=== PATIENT | female | born 1990 | race Hispanic/Latino ===

== ENCOUNTER 2017-05-21 14:04 | Outpatient (CLI) | payer OTHER | END 2017-05-21 14:05 | disposition home or self-care (01) | LOC: BICULT 14:04 | PROVIDERS: ATTEND Family Medicine | DX: R22.1 Localized swelling, mass and lump, neck (principal) | CPT/HCPCS: 76536 ==

== ENCOUNTER 2017-07-26 23:09 | Emergency (ER) | payer OTHER ==
[2017-07-27 00:40] LABS: Pregnancy Test - Urine (BHCG) Negative (Negative); Pregu Control Background? CLEAR/WHITE (CLR/WHITE); Pregu Control Bar Appear? YES (CONTROL BAR); Specific Gravity 1.025 (1.002-1.036)
[2017-07-27] MEDS ORDERED: Ketorolac Tromethamine 30 MG/ML VIAL ONE ×3 (01:24→01:45)
[2017-07-27] MEDS ORDERED: Cyclobenzaprine 10 MG TAB ONE ×2 (01:24→01:43)
== END 2017-07-27 02:14 | disposition home or self-care (01) ==
LOC: ERS 23:09
DX: R25.2 Cramp and spasm (principal); G43.909 Migraine, unspecified, not intractable, without status migrainosus; I10 Essential (primary) hypertension
CPT/HCPCS: 81025; 96372; J1885

== ENCOUNTER 2018-01-04 19:02 | Emergency (ER) | payer OTHER ==
[2018-01-04] MEDS ORDERED: Cyclobenzaprine 10 MG TAB ONE (19:35)
[2018-01-04] MEDS ORDERED: Ketorolac Tromethamine 60 MG/2 ML VIAL ONE (19:35)
[2018-01-04] MEDS ORDERED: Diazepam 5 MG TAB ONE (20:55)
== END 2018-01-04 21:42 | disposition home or self-care (01) ==
LOC: ERS 19:02
DX: M62.838 Other muscle spasm (principal); I10 Essential (primary) hypertension; G43.909 Migraine, unspecified, not intractable, without status migrainosus; Z79.899 Other long term (current) drug therapy
CPT/HCPCS: 96372; J1885

== ENCOUNTER 2018-01-27 19:30 | Outpatient (CLI) | payer OTHER | END 2018-01-27 19:31 | disposition home or self-care (01) | LOC: SLEEPLAB 19:30 | PROVIDERS: ATTEND Family Medicine | DX: G47.33 Obstructive sleep apnea (adult) (pediatric) (principal); I10 Essential (primary) hypertension; R53.83 Other fatigue; R06.83 Snoring; G47.00 Insomnia, unspecified; G47.10 Hypersomnia, unspecified; G47.11 Idiopathic hypersomnia with long sleep time; Z68.37 Body mass index [BMI] 37.0-37.9, adult | CPT/HCPCS: 95810 ==

== ENCOUNTER 2018-07-23 14:04 | Day surgery (SDC) | payer OTHER ==
[2018-07-23 14:41] VITALS: BP 138/87; TEMP 98.8
[2018-07-23 14:42] VITALS: BMI 39.3
--- NOTE | 2018-07-23 15:15 | PDOC.FPROB ---
FMR OB H&P: HPI - History of Present Illness Chief Complaint: Elevated BP History of Present Illness: 28 yo @ 28.0 wks by 8.5 wk meka presents for mild dizziness and elevated BP readings at home. Notes when standing up out of bed this am, felt dizzy. Has had dizziness at times throughout day. Standing from sitting position exacerbated this. Her home BP readings max 150/105, otherwise 140s/ 90s. She notes it is typically 120s/80s. Has hx pre-E in first and cHTN, was on lisinopril but stopped taking when found out she was . Denies N/V, vision changes, swelling, SOB, CP, abdominal pain. Reports mild headache. Pt has hx migraines and she says this is very minimal. Primary Care Physician: Naren PELAEZ FMR OB H&P: Current - Care : 6 Para: 5005 Gestational age: 28.0 Due date: 10/15/2018 Dating Criteria: 8.5 wk US - OB Labs Blood type: O RH: negative Antibody Screen: positive HIV: negative RPR: negative HepBsAg: negative Rubella: immune Gonorrhea: negative Chlamydia: negative A1c: 5.7 H&H: 11.9/34.9 Platelets: 256 FMR OB H&P: History - Past Medical History PMH: chronic HTN, migraines - OB History OB History: 4 vaginal deliveries. Pre-eclampsia in 1st - Surgical History Sx History: None - Social History Social History: No tobacco, alcohol or drug use. - Family History Family History: HTN, DM, arthritis FMR OB H&P: Medications - Current Home Medications: Medication Instructions Recorded Confirmed Type Vit,Calc76/Iron/Folic 1 tablet PO DAILY 03/24/13 07/23/18 History [Prenatabs Rx Tablet] Aspirin Chewable 81 mg PO DAILY 07/23/18 07/23/18 History Allergies/Adverse Reactions: Allergies Allergy/AdvReac Type Severity Reaction Status Date / Time No Known Allergies Allergy Verified 01/27/16 21:42 FMR OB H&P: ROS - Review of Systems General: denies: fever/chills Eyes: denies: vision changes, scotomas ENT: reports: other (headache) Cardiovascular: denies: chest pain, edema Respiratory: denies: cough, shortness of breath Gastrointestinal: denies: abdominal pain, nausea, vomiting Genitourinary (Female): denies: dysuria, vaginal discharge, vaginal bleeding, contractions Musculoskeletal: denies: pain, swelling Neurologic: reports: headache FMR OB H&P: Vital Signs - Maternal Vital signs: Vital Signs - First Documented Temp Pulse Resp BP Pulse Ox 98.8 F 61 16 138/87 100 07/23/18 14:20 07/23/18 14:20 07/23/18 14:20 07/23/18 14:20 07/23/18 14:20 - Heart Tones Baseline: 145 Variability: moderate Acceleration: present Deceleration: absent [place] contractions every: none FMR OB H&P: Physical Exam - Physical Exam General: NAD, awake, alert and oriented HEENT: normocephalic and atraumatic, MMM, grossly normal vision, grossly normal hearing Heart: RRR, normal S1/S2, no murmurs/rubs/gallops, no edema General: CTAB, no respiratory distress, no wheezing Abdomen: soft, gravid, non-tender, bowel sound present Skin: good tugor, capillary refill <2 seconds Lymphatic: no unusual bruising or bleeding FMR OB H&P: A/P - Problem List (1) Chronic hypertension affecting Status: Acute Code(s): O10.919 - UNSP PRE-EXISTING HTN COMP , UNSP TRIMESTER (2) Rh negative status during Status: Acute Code(s): O09.899 - SUPERVISION OF OTHER HIGH RISK PREGNANCIES, UNSP TRIMESTER Comment: Delivered male with O negative blood type. No additional Rhogam required. Discussion: Date/Time: 07/23/18 1515 Elevated BP - BP max here 138/87, continue serial BPs - CBC, CMP, urine studies pending - PO hydration and tylenol ordered cHTN - takes ASA 81mg at home - seen by [facility] outpatient Rh negative - antibody positive 2/2 rhogam administration early in - last seen in clinic @ 25 weeks, had not received 28 week rhogam yet Labs resulted and wnl apart from moderate leuk esterase on UA. Patient asymptomatic and no abx given. Urine culture sent and will follow up on FOS list. Patient's mild headache and dizziness resolved with tylenol and PO hydration. Symptoms likely 2/2 dehydration. All BPs <140/90. Recommended follow up and return precautions given. This H&P was discussed with Dr. Nazario Salinas and Dr. Aguero who agree with the above documentation and plan. Addendum - Attending - Attending Attestation Date/Time: 07/24/18 0716 I personally evaluated the patient and discussed the management with Dr. [] I agree with the History, Examination, Assessment and Plan documented above with any addition or exceptions noted below. 28 yo @ 28.0 wks by 8.5 wk sono seen for BP evaluation. Pt with known h/ o chronic HTN. Pt reports dizziness with position changes that resolves quickly. BP and lab evaluation here do not support superimposed preeclampsia at this time. Stable for d/c to home. Preeclampsia precautions reviewed
[2018-07-23] MEDS ORDERED: Acetaminophen 500 MG TAB PO SCH (15:30)
[2018-07-23 15:31] LABS: Bilirubin Negative (Negative); Blood, Urine Negative (Negative); Clarity CLOUDY (Clear); Glucose, Urine (Dipstick) Negative (Negative); Leukocyte Moderate (Negative); Nitrite Negative (Negative); Protein, Urine (Dipstick) Negative (Neg-Trace); Specific Gravity, Urine 1.025 (1.002-1.036)
[2018-07-23 15:34] LABS: Urine Culture Reflex No No
[2018-07-23 15:51] LABS: #Eosinphils 0.1 thou/uL (0.0-0.7); #Lymphocytes 1.4 thou/uL (1.20-3.40); #Monocytes 0.5 thou/uL (0.11-0.59); #Neutrophils 5.9 thou/uL (1.40-6.50); %Basophils 0.4 % (0.0-1.0); %Eosinophils 1.2 % (0.0-10.0); %Lymphocytes 18.2 % (21.0-51.0); %Monocytes 5.8 % (0.0-10.0); %Neutrophils 74.4 % (42.0-75.0); Hemoglobin 12.4 g/dL (12.0-16.0); Mean Corpuscular HGB CONC 33.3 g/dL (32.0-36.0); Mean Corpuscular Hemoglobin 28.4 pg (27.0-31.0); Mean Corpuscular Volume 85.5 fL (78.0-98.0); Mean Platelet Volume 9.4 fL (7.4-10.4); Platelet Count 237 thou/uL (130-400); RBC Distribution Width 12.1 % (11.5-14.5); Red Blood Cell (RBC) Count 4.35 mill/uL (4.20-5.40); White Blood Cell (WBC) Count 7.9 thou/uL (4.8-10.8)
[2018-07-23 16:12] LABS: ALT (SGPT) 10 U/L (8-55); AST (SGOT) 11 U/L (5-34); Albumin 3.2 g/dL (3.5-5.0); Alkaline Phosphatase 106 U/L (40-150); Anion Gap 12 mmol/L (10-20); BUN (Urea Nitrogen) 8 mg/dL (7.0-18.7); Bilirubin, Total 0.3 mg/dL (0.2-1.2); Calc. Creatinine Clearance 209 mL/min (70-130); Calcium 9.2 mg/dL (7.8-10.44); Carbon Dioxide 19 mmol/L (22-29); Chloride 107 mmol/L (98-107); Estimated GFR-MDRD Greater than 90; Glucose 89 mg/dL (70-105); Potassium 4.1 mmol/L (3.5-5.1); Protein, Total 6.2 g/dL (6.0-8.3); Sodium 134 mmol/L (136-145)
== END 2018-07-23 16:58 | disposition home or self-care (01) ==
LOC: L&D/OP 14:04
PROVIDERS: ATTEND Family Medicine
DX: O10.913 Unspecified pre-existing hypertension complicating pregnancy, third trimester (principal); O99.89 Other specified diseases and conditions complicating pregnancy, childbirth and the puerperium; R42 Dizziness and giddiness; O99.353 Diseases of the nervous system complicating pregnancy, third trimester; G43.909 Migraine, unspecified, not intractable, without status migrainosus; Z79.82 Long term (current) use of aspirin; Z3A.28 28 weeks gestation of pregnancy
CPT/HCPCS: 36415; 80053; 81003; 82570; 84156; 84550; 85025; 87086; 99283

== ENCOUNTER 2018-09-19 17:13 | Day surgery (SDC) | payer OTHER ==
[2018-09-19] MEDS ORDERED: hydrALAZINE 20 MG/ML VIAL SLOW IVP PRN (17:17)
[2018-09-19 17:47] VITALS: BP 138/78; TEMP 98.6
[2018-09-19 17:48] VITALS: BMI 40.7
[2018-09-19 18:17] LABS: #Eosinphils 0.1 thou/uL (0.0-0.7); #Lymphocytes 1.5 thou/uL (1.20-3.40); #Monocytes 0.5 thou/uL (0.11-0.59); #Neutrophils 6.2 thou/uL (1.40-6.50); %Basophils 0.4 % (0.0-1.0); %Eosinophils 1.6 % (0.0-10.0); %Lymphocytes 17.5 % (21.0-51.0); %Monocytes 6.1 % (0.0-10.0); %Neutrophils 74.5 % (42.0-75.0); Hemoglobin 11.6 g/dL (12.0-16.0); Mean Corpuscular Hemoglobin 27.7 pg (27.0-31.0); Mean Platelet Volume 9.2 fL (7.4-10.4); Platelet Count 223 thou/uL (130-400); RBC Distribution Width 12.2 % (11.5-14.5); White Blood Cell (WBC) Count 8.4 thou/uL (4.8-10.8)
--- NOTE | 2018-09-19 18:32 | PDOC.LDHP ---
Labor and Delivery H&P Chief complaint: abdominal pain, other ("seeing spots" x1 time today) HPI: Ms. Jonathan Norwood is a 28 year old @ 36.2 weeks by 8.5 week sonogram who presents to L&D after being seen in clinic today. At her visit she reported RUQ pain x2 days and one episode of "seeing stars" today while walking. She has a history of preeclampsia with her first child. She denies painful contractions, loss of fluid or mucus, vaginal bleeding, and decreased movement. 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 She also has lower abdominal pain that has been present for the past several weeks and is mild and constant in nature. She has PMH of chronic HTN for which she took Lisinopril prior to . During this her medications include baby aspirin and vitamins. ROS: General: denies fever, chills Eyes: c/o photopsia, denies blurred vision, scotoma CV: denies chest pain Respiratory: denies shortness of breath, cough, congestion GI: c/o RUQ pain, lower abdominal pain. denies nausea, vomiting. : c/o regular vaginal discharge. denies loss of fluid, mucus plug, vaginal bleeding. MSK: denies pain Neuro: denies headache Current gestational age (weeks): 36 (36.2) Due date: 10/15/18 Dating criteria: first trimester ultrasound Grav: 6 Para: 5 Current complications: preeclampsia without severe features (first ) Past Medical History: Chronic HTN Current medications: pre- vitamins, other (aspirin 81mg) Previous surgical history: none Allergies/Adverse Reactions: Allergies Allergy/AdvReac Type Severity Reaction Status Date / Time No Known Allergies Allergy Verified 01/27/16 21:42 Social history: none - Physical Exam Vital signs reviewed and normal: yes Abnormal vital signs: BP 167/104 @1822. Recheck @ 1837 146/80. General: NAD, resting Heart: RRR Lungs: CTAB Abdomen: NTTP Extremeties: trace edema FHT: category 1 (FHR in the 130s, good variability, no contractions) - OB Labs Blood type: O RH: negative Antibody Screen: positive HIV: negative RPR: negative HEPSAg: negative GBS: negative Rubella: immune Additional Labs: Laboratory Tests 09/19/18 09/19/18 09/19/18 18:08 18:12 18:12 WBC 8.4 Hgb 11.6 L Plt Count 223 Creatinine 0.63 AST 13 ALT 13 U Random Total Protein Less than 10 Urine Creatinine 60.19 - Assessment 28 year old @ 36.2 weeks by 8.5 week sonogram who presents to L&D to be assessed for pre-ecclampsia workup. - Plan Plan: observation in L&D -: 1. Pre-e workup Patient on the monitor, Category 1 tracing. Monitored blood pressures for approximately 3 hours. One severe range BP at 1822 (167/104) followed by mildly elevated range at 1837 (148/80). Otherwise all pressures were in the 140s/80s. Lab results came back normal. RUQ US showed no abnormal findings. Plan is to discharge the patient and have her follow up with her BPP/NST appointment at the clinic tomorrow.
[2018-09-19 18:40] LABS: Creatinine, Urine 60.19 mg/dL (47-110); Protein, Urine Random Quant Less than 10 mg/dL (1-14)
[2018-09-19 18:46] LABS: ALT (SGPT) 13 U/L (8-55); AST (SGOT) 13 U/L (5-34); Albumin 3.1 g/dL (3.5-5.0); Alkaline Phosphatase 168 U/L (40-150); Anion Gap 12 mmol/L (10-20); BUN (Urea Nitrogen) 10 mg/dL (7.0-18.7); Bilirubin, Total 0.3 mg/dL (0.2-1.2); Calc. Creatinine Clearance 217 mL/min (70-130); Calcium 9.3 mg/dL (7.8-10.44); Carbon Dioxide 20 mmol/L (22-29); Chloride 107 mmol/L (98-107); Estimated GFR-MDRD Greater than 90; Globulin 2.6 g/dL (2.4-3.5); Glucose 83 mg/dL (70-105); Potassium 4.1 mmol/L (3.5-5.1); Protein, Total 5.7 g/dL (6.0-8.3); Sodium 135 mmol/L (136-145)
--- NOTE | 2018-09-19 20:16 | ULT ---
RIGHT UPPER QUADRANT ABDOMINAL ULTRASOUND: HISTORY: Right upper quadrant abdominal pain. TECHNIQUE: Multiplanar anne-scale and color Doppler images were obtained in a right upper quadrant abdominal ult rasound. FINDINGS: The liver is normal in echogenicity without focal lesions or intrahepatic ductal dilatation. The gal lbladder is not completely distended, as the patient recently ate. There are no shadowing stones or gallbladder wall thickening. The common bile duct is normal in caliber, measuring 3 mm. The visualized portions of the pancreas are unremarkable. The right kidney is normal in echogenicity without hydronephrosis or calculus and measures 10.6 cm in length. IMPRESSION: Unremarkable examination. POS: [facility]
== END 2018-09-19 21:25 | disposition home or self-care (01) ==
LOC: L&D/OP 17:13
PROVIDERS: ATTEND Family Medicine
DX: O99.89 Other specified diseases and conditions complicating pregnancy, childbirth and the puerperium (principal); R10.11 Right upper quadrant pain; R10.30 Lower abdominal pain, unspecified; O10.913 Unspecified pre-existing hypertension complicating pregnancy, third trimester; Z3A.36 36 weeks gestation of pregnancy; Z79.82 Long term (current) use of aspirin
CPT/HCPCS: 36415; 59025; 76705; 80053; 82570; 84156; 85025; 99285

== ENCOUNTER 2018-10-01 08:05 | Inpatient (IN) | payer OTHER ==
[2018-10-01 08:43] VITALS: BMI 40.5
[2018-10-01 08:54] LABS: Amnisure Test RUPTURE DETECTED (No Rupture)
[2018-10-01 08:55] LABS: Amnisure Internal Control QC ACCEPTABLE (ACCEPTABLE)
--- NOTE | 2018-10-01 09:17 | PDOC.FPROB ---
FMR OB H&P: HPI - History of Present Illness Chief Complaint: LOF History of Present Illness: 28 yo @ 38.0 wks dated by 8.5 wk sono comes in with concern for excessive discharge. Denies any ctx. Woke up at 7:30 this morning with lots of discharge and fluid in bed. Denies any vaginal bleeding. denies any urinary sx' s. Denies any vaginal itching or irritation. Denies any headaches or vision changes. Denies any RUQ pain. Denies any n/v. Denies any leg swelling. Reports FM. Primary Care Physician: TERRA Sneed FMR OB H&P: Current - Care : 6 Para: 5 Gestational age: 38 Due date: 10/15 - OB Labs Blood type: O RH: negative Antibody Screen: positive HIV: negative RPR: negative HepBsAg: negative Rubella: immune (Anti D antibody positive) Gonorrhea: negative Chlamydia: negative 1 hour gtt: 2 hr GTt negative GBS: negative - Anatomy Survey Anatomy survey: No abnormalities noted FMR OB H&P: History - Past Medical History PMH: HTN - OB History OB History: 5 previous Vaginal Deliveries Hx of gestational diabetes - [employer] History [employer] History: 04/12/18 pap smear normal - Surgical History Sx History: None - Social History Social History: Denies any smoking, alcohol or illicit drug use - Family History Family History: Diabetes, HTN FMR OB H&P: Medications - Current Home Medications: Medication Instructions Recorded Confirmed Type Vit,Calc76/Iron/Folic 1 tablet PO DAILY 03/24/13 10/01/18 History [Prenatabs Rx Tablet] Ibuprofen [Motrin] 800 mg PO Q8HR #30 tab 10/03/18 Rx Allergies/Adverse Reactions: Allergies Allergy/AdvReac Type Severity Reaction Status Date / Time No Known Allergies Allergy Verified 01/27/16 21:42 FMR OB H&P: ROS - Review of Systems General: denies: fever/chills, weight/appetite/sleep changes ENT: denies: nasal congestion, rhinorrhea Cardiovascular: denies: chest pain, edema Respiratory: denies: cough, congestion, shortness of breath Gastrointestinal: denies: abdominal pain, cramping, nausea, vomiting, diarrhea Genitourinary (Female): denies: incontinence, dysuria, hematuria, vaginal discharge, vaginal pain, vaginal bleeding, contractions, vaginal pressure Musculoskeletal: denies: pain Neurologic: denies: numbness, headache Integumentary: denies: itching, rash Psychological: denies: depression, anxiety FMR OB H&P: Vital Signs - Maternal Vital signs: Vital Signs - First Documented Temp Pulse Resp BP 98.7 F 63 16 138/78 10/01/18 08:38 10/01/18 08:38 10/01/18 08:38 10/01/18 08:38 - Heart Tones Baseline: 140 Variability: moderate Acceleration: present Deceleration: absent Category: category 1 [place] contractions every: only one seen. Occasional FMR OB H&P: Physical Exam - Physical Exam General: NAD, awake, alert and oriented HEENT: grossly normal vision, grossly normal hearing, good dention Neck: supple, trachea midline, no LAD Heart: RRR, normal S1/S2, no murmurs/rubs/gallops, pulses present, no edema General: CTAB, no respiratory distress, good air movement, no rales/rhonchi, no wheezing Abdomen: soft, gravid, non-tender, bowel sound present, no masses Musculoskeletal: normal gait and station, FROM in all four extremities Neurological: sensation to pain,touch and proprioception grossly normal Skin: no rash, good tugor, capillary refill <2 seconds Lymphatic: no unusual bruising or bleeding Psychiatric: intact recent and remote memory, good judgement and insight, normal mood and affect - Pelvic Exam SVE: 9:15 3/25/-2 Davis score: 6 Membranes: SROM, Amnisure + Presentation: Vertex FMR OB H&P: Results - Labs Lab results: Laboratory Results - last 24 hr 10/01/18 08:30 Amnio Swab Test RUPTURE DETECTED H FMR OB H&P: A/P - Problem List (1) Term Current Visit: Yes Status: Acute Code(s): Z34.90 - ENCNTR FOR SUPRVSN OF NORMAL , UNSP, UNSP TRIMESTER (2) Premature rupture of membranes Current Visit: Yes Status: Acute Code(s): O42.90 - ABILIO ROM, 7TH0 BETW RUPT & ONST LABR, UNSP WEEKS OF GEST (3) Chronic hypertension affecting Current Visit: No Status: Acute Code(s): O10.919 - UNSP PRE-EXISTING HTN COMP , UNSP TRIMESTER (4) Rh negative status during Current Visit: No Status: Acute Code(s): O09.899 - SUPERVISION OF OTHER HIGH RISK PREGNANCIES, UNSP TRIMESTER Disposition: 27 year old at 38.0wks by 8.5 wk sono with NISHA 10/15/2018 here with possible SROM. #PROM- Amnisure +, will admit for labor at this time. Will start Pitocin for augmentation when pt ready. She has denied at this time. GBS negative. No need for abx ppx at this time #sIUP: IOB labs WNL. Pap smear NILM. GC/CT negative. Q4wk growth scans at our clinic, along with weekly mBPP/NST. 2h GTT WNL. s/p Tdap. 3T labs WNL. #History of Pre-E: Patient encouraged to take daily ASA. Baseline 24h urine protien 60. CMP WNL. Patient with recent pre-E workup that was negative. # cHTN: Patient has had several BP's >140/90 in early . Encouraged daily ASA. Continue weekly mBPP/NST and q4w growth scans. Patient followed with HROB and MFM. TSH wnl. Baseline labs drawn at previous visit and noted to be wnl. 24 hour urine protein 60 mg. Renal ultrasound ordered previously, but patient has yet to have this done due to financial limitations. #Rh negative: Patient received rhogam in early . Rhogam given 08/03. #Grandmultip: Patient is high risk for PPH. # Antibody positive: 2/2 rhogam administration in early . #Hx of GDM: HgA1c 5.7%. 2h GTT WNL #Bacterial vaginosis s/p treatment # Contraception: IUD vs. Depo Provera. Patient not ready for permanent sterilization. Addendum - Attending - Attending Attestation Date/Time: 10/03/18 6801 I personally discussed the management with Dr. Deluna at the time of admission. I agree with the History, Examination, Assessment and Plan documented above with any addition or exceptions noted below.
[2018-10-01] MEDS ORDERED: NS / Oxytocin 40 units/1000ml 1,000 ML IV PRN (09:21)
[2018-10-01] MEDS ORDERED: Ondansetron PF 4 MG/2 ML Vial IVP PRN ×2 (09:21→18:04)
[2018-10-01] MEDS ORDERED: hydrALAZINE 20 MG/ML VIAL SLOW IVP PRN ×2 (09:21→18:04)
[2018-10-01] MEDS ORDERED: Misoprostol 200 MCG TAB PR PRN (09:21)
[2018-10-01] MEDS ORDERED: Promethazine HCl 25 MG/ML VIAL IM PRN (09:21)
[2018-10-01] MEDS ORDERED: Acetaminophen 500 MG TAB PO PRN (09:21)
[2018-10-01] MEDS ORDERED: Lidocaine 1% (PF) 30 ML VIAL SC PRN (09:21)
[2018-10-01] MEDS ORDERED: Methylergonovine 0.2 MG/ML VIAL IM PRN (09:21)
[2018-10-01] MEDS ORDERED: Carboprost 250 MCG/ML AMP IM PRN (09:21)
[2018-10-01] MEDS ORDERED: NS w/ Oxytocin 10 units 500 ML IV SCH ×2 (09:30)
[2018-10-01 13:11] LABS: Hemoglobin 11.8 g/dL (12.0-16.0); Mean Corpuscular HGB CONC 32.9 g/dL (32.0-36.0); Mean Corpuscular Hemoglobin 27.7 pg (27.0-31.0); Mean Corpuscular Volume 84.3 fL (78.0-98.0); Mean Platelet Volume 9.4 fL (7.4-10.4); Platelet Count 207 thou/uL (130-400); RBC Distribution Width 12.2 % (11.5-14.5); Red Blood Cell (RBC) Count 4.25 mill/uL (4.20-5.40); White Blood Cell (WBC) Count 7.9 thou/uL (4.8-10.8)
[2018-10-01] MEDS: Lactated Ringer's 1,000 ML IV SCH (13:11)
[2018-10-01 13:58] LABS: Syphilis Antibody Nonreactive (Nonreactive); Syphilis Antibody Index 0.04 S/CO (<1.00 Non-Reactive)
[2018-10-01 13:58] LABS: HBSAg Index 0.31 S/CO (0-0.99); Hep B Surf Ag Non-Reactive S/CO (NonReactive)
[2018-10-01] MEDS ORDERED: Fentanyl 4 mcg/Bup 0.1% Cadd 100 ML ONE (15:15)
--- NOTE | 2018-10-01 16:34 | PDOC.OBLPN ---
FMR OB Labor PN: Subj - Interval History Chief Complaint: 27 year old at 38.0wks by 8.5 wk sono with NISHA 2018 Indentification: admitted for term PROM FMR OB Labor PN: Obj - Maternal Vital signs: Selected Entries 10/01/18 08:38 Temperature 98.7 F Pulse Rate 63 Blood Pressure 138/78 [Semi-Fowlers] Respiratory 16 Rate FMR OB Labor PN: Exam - Physical Exam General: NAD, awake, alert and oriented HEENT: normocephalic and atraumatic, PERRLA Heart: no edema General: no respiratory distress Deviation from normal: alaina, resting comfortably with epidural. FMR OB Labor PN: Data - Labs Lab results: Laboratory Results - last 24 hr 10/01/18 10/01/18 10/01/18 08:30 12:53 12:54 WBC 7.9 RBC 4.25 Hgb 11.8 L Hct 35.8 L MCV 84.3 MCH 27.7 MCHC 32.9 RDW 12.2 Plt Count 207 MPV 9.4 Amnio Swab Test RUPTURE DETECTED H Syphilis IgG/IgM Ab Nonreactive Hep Bs Antigen Blood Type Antibody Screen Antibody Identification 10/01/18 10/01/18 12:54 12:55 WBC RBC Hgb Hct MCV MCH MCHC RDW Plt Count MPV Amnio Swab Test Syphilis IgG/IgM Ab Hep Bs Antigen Non-Reactive Blood Type O NEGATIVE Antibody Screen POSITIVE H Antibody Identification ANTI-D DUE TO RHOGAM INJECTION FMR OB Labor PN: A/P - Problem List (1) Premature rupture of membranes Current Visit: Yes Status: Acute Code(s): O42.90 - ABILIO ROM, 7TH0 BETW RUPT & ONST LABR, UNSP WEEKS OF GEST (2) Term Current Visit: Yes Status: Acute Code(s): Z34.90 - ENCNTR FOR SUPRVSN OF NORMAL , UNSP, UNSP TRIMESTER (3) Chronic hypertension affecting Current Visit: No Status: Acute Code(s): O10.919 - UNSP PRE-EXISTING HTN COMP , UNSP TRIMESTER (4) Rh negative status during Current Visit: No Status: Acute Code(s): O09.899 - SUPERVISION OF OTHER HIGH RISK PREGNANCIES, UNSP TRIMESTER Comment: Delivered male infant with O negative blood type. No additional Rhogam required. Discussion: Date/Time: 10/01/18 6673 27 year old at 38.0wks by 8.5 wk sono with NISHA 10/15/2018 here admitted for term prelabor rupture of membranes. #Term PROM- Amnisure +,admitted. Started pitocin at 1200. Recheck at 1400 was 5/ 50/-2. Pt just receieved epdural at 1600. Planning to recheck now. GBS negative. No need for abx ppx at this time. Will continue augmentation with pitocin. #sIUP: IOB labs WNL. Pap smear NILM. GC/CT negative. Q4wk growth scans at our clinic, along with weekly mBPP/NST. 2h GTT WNL. s/p Tdap. 3T labs WNL. #History of Pre-E: Patient encouraged to take daily ASA. Baseline 24h urine protien 60. CMP WNL. Patient with recent pre-E workup that was negative. # cHTN: Pt here has had two severe range pressures while sitting up getting epidural, that resolved after placing epidural. Will monitor closely. Baseline labs drawn at previous visit and noted to be wnl. 24 hour urine protein 60 mg. Renal ultrasound ordered previously, but patient has yet to have this done due to financial limitations. #Rh negative: Rhogam given 08/03. #Grandmultip: Patient is high risk for PPH. #Antibody positive: 2/2 rhogam administration in early . #Hx of GDM: HgA1c 5.7%. 2h GTT WNL #Bacterial vaginosis s/p treatment #Contraception: IUD vs. Depo Provera. Patient not ready for permanent sterilization. Dispo: continue augmentation with pitocin. Addendum - Attending - Attending Attestation Date/Time: 10/01/18 3277 I personally evaluated the patient and discussed the management with Dr. Weston. I agree with the Assessment and Plan documented above.
[2018-10-01] MEDS ORDERED: Carboprost 250 MCG/ML AMP ONE (17:07)
[2018-10-01] MEDS ORDERED: Methylergonovine 0.2 MG/ML VIAL ONE (17:07)
[2018-10-01] MEDS ORDERED: NS / Oxytocin 40 units/1000ml 0 ML ONE (17:07)
[2018-10-01] MEDS ORDERED: Misoprostol 200 MCG TAB ONE (17:07)
[2018-10-01] MEDS ORDERED: Loperamide HCl 2 MG CAP PO PRN (17:20)
[2018-10-01] MEDS ORDERED: Diphenoxylate HCl/Atropine Tablet PO SCH (17:30)
[2018-10-01] MEDS ORDERED: Milk Of Magnesia 30 ML UDCUP PO PRN (18:04)
[2018-10-01] MEDS ORDERED: Bisacodyl 10 MG SUPP PR PRN (18:04)
[2018-10-01] MEDS ORDERED: Lanolin Ointment 7 GM TUBE TOP PRN (18:04)
[2018-10-01] MEDS ORDERED: Adacel (T-DAP) 0.5 ML SYRINGE IM ONE (18:04)
[2018-10-01] MEDS ORDERED: NS / Oxytocin 40 units/1000ml 1,000 ML IV SCH (18:04)
[2018-10-01] MEDS ORDERED: diphenhydrAMINE 25 MG CAP PO PRN (18:04)
[2018-10-01] MEDS ORDERED: Diphenoxylate HCl/Atropine Tablet PO PRN (19:37)
[2018-10-01] MEDS: Ibuprofen 800 MG TAB PO SCH (21:01)
[2018-10-01] MEDS: Docusate Calcium (SURFAK) 240 MG CAP PO SCH (21:19)
[2018-10-01] MEDS ORDERED: Acetaminophen 325 MG TAB PO PRN (21:44)
[2018-10-01] MEDS ORDERED: HYDROcodone/Acetaminophen 5/325 mg Tablet PO SCH (21:45)
--- NOTE | 2018-10-01 22:50 | PDOC.EVN ---
Event Note - Event Note Event Note: Note dictated at 17:30, but not yet available for review. Please see below for brief op note. 28 year old G6 now [id number] at 38.0 wks by 8.5 wk meka delivered [place] infant at 16:59 on 10/01 via . Patient presented with PROM and had uneventful intrapartum course. Delivered infant over intact perineum in OA position. Placenta delivered spontaneously and was noted to be intact with 3V cord noted and discarded. No lacerations noted. Uterus mildly boggy with moderate amount of bleeding noted after delivery. 800 mg of cytotec and .25 mg of hemabate given. No additional bleeding after medications. QBL 325 mL. Patient to go to for routine recovery/care. Infant went to nursery for routine recovery/care. Apgars 9/9 at 1 and 5 minutes respectively. Lisa Sneed, DO PGY-3 Addendum - Attending - Attending Attestation Date/Time: 10/02/18 0118 I was present to attend this uncomplicated with Dr. Velasquez. I agree with the History, Examination, Assessment and Plan documented above.
[2018-10-02] MEDS: Ibuprofen 800 MG TAB PO SCH ×3 (05:45→21:56)
[2018-10-02] MEDS: Lactated Ringer's 1,000 ML IV SCH (07:06)
--- NOTE | 2018-10-02 07:46 | PDOC.PP ---
Post Progress Note Post Day #: 1 Subjective: Patient PP day #1. Doing well. Endorses some nausea overnight. She has not had a meal yet due to nausea. She states she received medicine and is doing better. She had some liquids yesterday. She is going to try to eat today. Patient has ambulated only minimally. She is passing flatus. Patient had some diarrhea 2/2 hemabate. PO intake tolerated: yes Flatus: yes Ambulation: yes Vital Signs (12 hours) Temp Pulse Resp BP 10/02/18 06:20 98.4 F 62 18 139/68 10/02/18 02:40 98.1 F 63 18 115/60 10/01/18 22:34 98.0 F 62 18 131/70 10/01/18 21:41 57 L 20 145/80 H 10/01/18 20:35 97.6 F 60 18 139/75 Weight Weight 103.873 kg - Physical Examination General: NAD Cardiovascular: RRR Respiratory: non-labored breathing Abdominal: + bowel sounds, lochia (minimal), no distention Fundus firm & at: below umbilicus Neurological: no gross focal deficits Psychiatric: A&Ox3, normal affect Result Diagrams: 10/01/18 12:53 Additional Labs: Post Labs Blood Type O NEGATIVE 10/01/18 12:54 Hep Bs Antigen Non-Reactive S/CO (NonReactive) 10/01/18 12:55 (1) Term delivered Code(s): O80 - ENCOUNTER FOR FULL-TERM UNCOMPLICATED DELIVERY Status: Acute (2) Chronic hypertension affecting Code(s): O10.919 - UNSP PRE-EXISTING HTN COMP , UNSP TRIMESTER Status : Acute (3) Rh negative status during Code(s): O09.899 - SUPERVISION OF OTHER HIGH RISK PREGNANCIES, UNSP TRIMESTER Status: Acute Comment: Delivered male infant with O negative blood type. No additional Rhogam required. (4) Vaginal delivery Code(s): O80 - ENCOUNTER FOR FULL-TERM UNCOMPLICATED DELIVERY Status: Acute Comment: Mother is doing well. Will be d/c today with 2 and 6 week post follow up. Benzocaine spray prn. - Assessment/Plan 28 year old G6 now P6 at 38.0 wks by 8.5 wk sono delivered [facility] at 16: 59 on 10/01 via . Apgars 9/9. 1. Routine PP care - PP day #1 - Lochia minimal - Passing flatus - Encourage PO intake today - Breast/bottle feeding - VSS; BP high to 145/80 - Contraception: IUD vs. Depo Provera 2. Chronic HTN - BP high to 145/80 - No signs/symptoms of Pre-E - Continue to monitor, no severe range pressures 3. Rh negative - O+, patient received rhogam PP 4. Grandmultip - Given cytotec and hemabate PP - Lochia minimal overnight 5. Hx pre-E in prior - BP high to 145/80 - No signs/symptoms of PP pre-E 6. Hx of GDM in prior - Patient passed 2h GTT Dispo: Plan for d/c home tomorrow.
[2018-10-02] MEDS: Docusate Calcium (SURFAK) 240 MG CAP PO SCH ×2 (08:58→21:56)
[2018-10-02] MEDS: Prenatal Vitamin 1 TAB PO SCH (08:58)
[2018-10-02] MEDS: Ferrous Sulfate 325 MG TAB PO SCH ×2 (08:59→21:36)
[2018-10-02] MEDS ORDERED: Bupivacaine/Epinephrine 0.25% 30 ML VIAL ONE (11:11)
[2018-10-03] MEDS: Ibuprofen 800 MG TAB PO SCH (05:26)
--- NOTE | 2018-10-03 07:27 | PDOC.PP ---
Post Progress Note Post Day #: 2 Subjective: Patient doing well this AM. No significant overnight events. Tolerating PO, ambulating, passing flatus. PO intake tolerated: yes Flatus: yes Ambulation: yes Vital Signs (12 hours) Temp Pulse Resp BP 10/02/18 19:35 98.6 F 56 L 20 134/84 Weight Weight 103.873 kg - Physical Examination General: NAD Cardiovascular: RRR Respiratory: non-labored breathing Abdominal: + bowel sounds, lochia (minimal), no distention, appropriately TTP Fundus firm & at: below umbilicus Neurological: no gross focal deficits Psychiatric: A&Ox3, normal affect Result Diagrams: 10/01/18 12:53 Additional Labs: Post Labs Blood Type O NEGATIVE 10/01/18 12:54 Hep Bs Antigen Non-Reactive S/CO (NonReactive) 10/01/18 12:55 (1) Term delivered Code(s): O80 - ENCOUNTER FOR FULL-TERM UNCOMPLICATED DELIVERY Status: Acute (2) Chronic hypertension affecting Code(s): O10.919 - UNSP PRE-EXISTING HTN COMP , UNSP TRIMESTER Status : Acute (3) Rh negative status during Code(s): O09.899 - SUPERVISION OF OTHER HIGH RISK PREGNANCIES, UNSP TRIMESTER Status: Acute (4) Vaginal delivery Code(s): O80 - ENCOUNTER FOR FULL-TERM UNCOMPLICATED DELIVERY Status: Acute - Assessment/Plan 28 year old G6 now P6 at 38.0 wks by 8.5 wk sono delivered [place] M infant at 16: 59 on 10/01 via . Apgars 9/9. 1. Routine PP care - PP day #2 - Lochia minimal - Passing flatus - Encourage PO intake today - Breast/bottle feeding - VSS; BP high to 145/80 yesterday - Contraception: IUD vs. Depo Provera 2. Chronic HTN - BP high to 145/80 yesterday - No signs/symptoms of Pre-E 3. Rh negative - Infant O+, patient received rhogam PP 4. Grandmultip - Given cytotec and hemabate PP - Lochia minimal overnight 5. Hx pre-E in prior - BP high to 145/80 yesterday - No signs/symptoms of PP pre-E 6. Hx of GDM in prior - Patient passed 2h GTT Dispo: Plan for d/c home today
[2018-10-03 07:48] VITALS: BP 133/65; TEMP 98.3
[2018-10-03] MEDS: Ferrous Sulfate 325 MG TAB PO SCH (08:58)
--- NOTE | 2018-10-03 09:02 | DN ---
DATE OF PROCEDURE: 10/01/2018 RESIDENT PHYSICIAN: Lisa Sneed DO. PREOPERATIVE DIAGNOSES: 1. Prelabor rupture of membranes. 2. Term intrauterine . 3. Chronic hypertension. 4. Rh negative. 5. Grand multiparity. 6. Bacterial vaginosis, status post treatment. POSTOPERATIVE DIAGNOSES: 1. Term intrauterine , delivered. 2. Prelabor rupture of membranes. 3. Chronic hypertension. 4. Rh negative. 5. Grand multiparity. 6. Bacterial vaginosis, status post treatment. DESCRIPTION OF PROCEDURE: This is a 28-year-old, G6, now P6-0-0-6 at 38 weeks via 8-week and 5-week sonograms, who presented to Labor and Delivery with prelabor rupture of membranes. The patient was started on Pitocin for augmentation. She had an uneventful antepartum course. The patient delivered a TAGA male at 1659 hours on 10/01 via spontaneous vaginal delivery, over an intact perineum in the occipitoanterior position. No complications or lacerations. The patient did have some mild atony, which required 800 of Cytotec and 0.2 of Hemabate. After initiation of these agents, the patient's bleeding did resolve. The patient is to go to for routine recovery/care. will go to nursery for routine recovery/care. Apgars were 9 and 9 at one and five minutes respectively. The placenta was delivered spontaneously and was noted to be intact with three-vessel cord and discarded. Job ID: [id number]
[2018-10-03] MEDS: Docusate Calcium (SURFAK) 240 MG CAP PO SCH (09:06)
[2018-10-03] MEDS: Prenatal Vitamin 1 TAB PO SCH (09:06)
== END 2018-10-03 10:29 | disposition home or self-care (01) | DRG 806 ==
LOC: L&D/OP 08:05 → L&D 09:40 → 3SW 20:46
PROVIDERS: ADMIT Family Medicine; ATTEND Family Medicine
PROC: 10E0XZZ Delivery of Products of Conception, External Approach (ICD-10-PCS; principal; 2018-10-01)
DX: O10.92 Unspecified pre-existing hypertension complicating childbirth (principal); O72.1 Other immediate postpartum hemorrhage; Z37.0 Single live birth; O42.92 Full-term premature rupture of membranes, unspecified as to length of time between rupture and onset of labor; O24.429 Gestational diabetes mellitus in childbirth, unspecified control; Z3A.38 38 weeks gestation of pregnancy
CPT/HCPCS: 36415; 84112; 85027; 85461; 86780; 86850; 86870; 86900; 86901; 87340; 90384; 96372; 99285; J2210; J2405; J2590; J3490

== ENCOUNTER 2019-05-04 22:32 | Emergency (ER) | payer OTHER ==
[2019-05-04] MEDS ORDERED: diphenhydrAMINE 50 MG/ML VIAL ONE (23:46)
[2019-05-04] MEDS ORDERED: Acetaminophen 500 MG TAB ONE (23:46)
[2019-05-04] MEDS ORDERED: Metoclopramide HCl 10 MG/2 ML VIAL ONE (23:46)
[2019-05-04] MEDS ORDERED: Ketorolac Tromethamine 30 MG/ML VIAL ONE (23:46)
[2019-05-04 23:50] LABS: #Basophils 0.1 thou/uL (0.0-0.2); #Eosinphils 0.2 thou/uL (0.0-0.7); #Lymphocytes 2.9 thou/uL (1.20-3.40); #Monocytes 0.5 thou/uL (0.11-0.59); %Basophils 0.9 % (0.0-1.0); %Eosinophils 2.3 % (0.0-10.0); %Lymphocytes 38.4 % (21.0-51.0); %Monocytes 6.7 % (0.0-10.0); %Neutrophils 51.7 % (42.0-75.0); Hemoglobin 13.9 g/dL (12.0-16.0); Mean Corpuscular HGB CONC 34.1 g/dL (32.0-36.0); Mean Corpuscular Hemoglobin 28.4 pg (27.0-31.0); Mean Corpuscular Volume 83.4 fL (78.0-98.0); Mean Platelet Volume 9.5 fL (7.4-10.4); Platelet Count 254 thou/uL (130-400); RBC Distribution Width 11.7 % (11.5-14.5); Red Blood Cell (RBC) Count 4.88 mill/uL (4.20-5.40); White Blood Cell (WBC) Count 7.7 thou/uL (4.8-10.8)
[2019-05-05 00:09] LABS: ALT (SGPT) 20 U/L (8-55); AST (SGOT) 12 U/L (5-34); Albumin 3.9 g/dL (3.5-5.0); Alkaline Phosphatase 87 U/L (40-110); Anion Gap 10 mmol/L (10-20); BUN (Urea Nitrogen) 10 mg/dL (7.0-18.7); Bilirubin, Total 0.2 mg/dL (0.2-1.2); Calc. Creatinine Clearance 0 mL/min (70-130); Calcium 8.9 mg/dL (7.8-10.44); Carbon Dioxide 27 mmol/L (22-29); Chloride 105 mmol/L (98-107); Estimated GFR-MDRD 90; Globulin 3.1 g/dL (2.4-3.5); Glucose 92 mg/dL (70-105); Potassium 3.4 mmol/L (3.5-5.1); Sodium 139 mmol/L (136-145)
[2019-05-05] MEDS ORDERED: methylPREDNISolone Sod Succ/PF 125 MG/2 ML VIAL ONE (00:58)
== END 2019-05-05 01:13 | disposition home or self-care (01) ==
LOC: ERS 22:32
DX: R51 Headache (principal); I10 Essential (primary) hypertension; R11.0 Nausea; Z79.899 Other long term (current) drug therapy
CPT/HCPCS: 80053; 84484; 85025; 93005; 96365; 96375; J1200; J1885; J2765; J2930

== ENCOUNTER 2019-05-10 10:07 | Outpatient (CLI) | payer OTHER ==
--- NOTE | 2019-05-10 10:57 | MMO ---
Bilateral MAMMO Bilat Diag [facility]. CLINICAL HISTORY: Patient is 29 years old and is seen for diagnostic exam. VIEWS: The views performed were: . FILMS COMPARED: The present examination has been compared to a prior imaging study performed at [facility] on 05/10/2019. This study has been interpreted with the assistance of computer-aided detection. MAMMOGRAM FINDINGS: The breasts are heterogeneously dense, which could obscure a lesion on mammography. There are no suspicious masses, suspicious calcifications, or areas of architectural distortion. There are no mammographic or sonographic abnormalities to explain the patient's breast pain. The patient is referred back to her clinician. Negative imaging findings should not preclude biopsy if clinical findings are suspicious. IMPRESSION: THERE ARE NO MAMMOGRAPHIC OR SONOGRAPHIC ABNORMALITIES TO EXPLAIN THE PATIENT'S BREAST PAIN. THE PATIENT IS REFERRED BACK TO HER CLINICIAN. NEGATIVE IMAGING FINDINGS SHOULD NOT PRECLUDE BIOPSY IF CLINICAL FINDINGS ARE SUSPICIOUS. THE RESULTS OF THIS EXAM WERE SENT TO THE PATIENT. ACR BI-RADS Category 1 - Negative MAMMOGRAPHY NOTE: 1. A negative mammogram report should not delay a biopsy if a dominant of clinically suspicious mass is present. 2. Approximately 10% to 15% of breast cancers are not detected by mammography. 3. Adenosis and dense breasts may obscure an underlying neoplasm. Reported by: ZAHRAA ZABALA MD Electonically Signed: [id number]
--- NOTE | 2019-05-10 10:58 | MMO ---
Left US Breast Limited Lt. CLINICAL HISTORY: Patient is 29 years old and is seen for . VIEWS: The views performed were: . FILMS COMPARED: The present examination has been compared to a prior imaging study performed at [facility] on 05/10/2019. This study has been interpreted with the assistance of computer-aided detection. LEFT BREAST ULTRASOUND FINDINGS: On ultrasound, no suspicious findings are identified. IMPRESSION: THERE ARE NO SONOGRAPHIC ABNORMALITIES TO EXPLAIN THE PATIENT'S BREAST PAIN. THE PATIENT IS REFERRED BACK TO HER CLINICIAN. NEGATIVE IMAGING FINDINGS SHOULD NOT PRECLUDE BIOPSY IF CLINICAL FINDINGS ARE SUSPICIOUS. THE RESULTS OF THIS EXAM WERE SENT TO THE PATIENT. ACR BI-RADS Category 1 - Negative MAMMOGRAPHY NOTE: 1. A negative mammogram report should not delay a biopsy if a dominant of clinically suspicious mass is present. 2. Approximately 10% to 15% of breast cancers are not detected by mammography. 3. Adenosis and dense breasts may obscure an underlying neoplasm. Reported by: ZAHRAA ZABALA MD Electonically Signed: [id number]
== END 2019-05-10 10:08 | disposition home or self-care (01) ==
LOC: BICMAMMO 10:07
PROVIDERS: ATTEND Family Medicine
DX: N64.4 Mastodynia (principal)
CPT/HCPCS: 77066; G0279

== ENCOUNTER 2020-01-13 03:11 | Emergency (ER) | payer OTHER, SELFPAY ==
[2020-01-13] MEDS ORDERED: Metoclopramide 10 MG/10 ML UDCUP ONE (03:47)
[2020-01-13] MEDS ORDERED: diphenhydrAMINE 50 MG/ML VIAL ONE (03:47)
[2020-01-13] MEDS ORDERED: Metoclopramide HCl 10 MG/2 ML VIAL ONE (03:48)
[2020-01-13] MEDS ORDERED: Ketorolac Tromethamine 30 MG/ML VIAL ONE (05:36)
--- NOTE | 2020-01-13 08:40 | CT ---
PRELIMINARY REPORT/[facility]/AFTER HOURS PROCEDURE CT HEAD WITHOUT INTRAVENOUS CONTRAST: CLINICAL HISTORY: A 29-year-old female patient presents ER with complaint of headache for the last 2 days. Patient stat es she has a history of migraines however this headache is different than her usual migraines as it i s causing pain to her entire . TECHNIQUE: Axial computed tomography images of the head/brain without intravenous contrast. COMPARISON: None provided. FINDINGS BRAIN: No acute intraparenchymal hemorrhage. No mass lesion. No CT evidence for acute territorial inf arct. No midline shift or extra-axial collection. VENTRICLES: No hydrocephalus. ORBITS: The orbits are unremarkable. SINUSES AND MASTOIDS: The paranasal sinuses and mastoid air cells are clear. SOFT TISSUES: No significant facial or scalp soft tissue swelling evident. No radiopaque foreign body is seen. BONES: No acute skull fracture. IMPRESSION: No acute intracranial abnormality. ELECTRONICALLY SIGNED BY: Alistair Schmidt MD Jan 13, 2020 5:20:40 AM CDT This report is intended for review by the ordering physician only, in accordance of law. If you recei ve this report in error, please call [facility] at [phone]. FINAL REPORT EMERGENT AFTER HOURS CT BRAIN: I agree with the preliminary interpretation. No evidence for intracranial hemorrhage or mass effect. CODE QA POS: ARLEEN
== END 2020-01-13 06:38 | disposition home or self-care (01) ==
LOC: ERS 03:11
DX: R51.9 Headache, unspecified (principal); I10 Essential (primary) hypertension; Z79.899 Other long term (current) drug therapy
CPT/HCPCS: 70450; 96365; 96366; 96375; J1200; J1885; J2765

== ENCOUNTER 2020-05-09 16:51 | Emergency (ER) | payer OTHER ==
[2020-05-09 17:46] LABS: #Basophils 0.1 thou/uL (0.0-0.2); #Eosinphils 0.2 thou/uL (0.0-0.7); #Lymphocytes 2.7 thou/uL (1.20-3.40); #Monocytes 0.6 thou/uL (0.11-0.59); #Neutrophils 4.4 thou/uL (1.40-6.50); %Basophils 1.3 % (0.0-1.0); %Eosinophils 3.1 % (0.0-10.0); %Lymphocytes 33.6 % (21.0-51.0); %Monocytes 7.2 % (0.0-10.0); %Neutrophils 54.8 % (42.0-75.0); Mean Corpuscular HGB CONC 34.3 g/dL (32.0-36.0); Mean Corpuscular Hemoglobin 28.5 pg (27.0-31.0); Mean Corpuscular Volume 83.3 fL (78.0-98.0); Mean Platelet Volume 9.1 fL (7.4-10.4); Platelet Count 321 thou/uL (130-400); RBC Distribution Width 11.6 % (11.5-14.5); Red Blood Cell (RBC) Count 4.89 mill/uL (4.20-5.40)
--- NOTE | 2020-05-09 17:59 | RAD ---
SINGLE VIEW OF THE CHEST: 05/09/20 COMPARISON: 11/10/16 HISTORY: Chest pain. FINDINGS: Single view of the chest shows a normal sized cardiomediastinal silhouette. There is no evidence of c onsolidation, mass, or pleural effusion. The bones are unremarkable. IMPRESSION: No evidence of acute cardiopulmonary disease. POS: EAA
[2020-05-09 18:02] LABS: ALT (SGPT) 37 U/L (8-55); AST (SGOT) 23 U/L (5-34); Alkaline Phosphatase 94 U/L (40-110); Anion Gap 14 mmol/L (10-20); BUN (Urea Nitrogen) 15 mg/dL (7.0-18.7); Bilirubin, Total 0.2 mg/dL (0.2-1.2); Calc. Creatinine Clearance 0 mL/min (70-130); Calcium 8.9 mg/dL (7.8-10.44); Carbon Dioxide 25 mmol/L (22-29); Chloride 103 mmol/L (98-107); Globulin 3.2 g/dL (2.4-3.5); Glucose 122 mg/dL (70-105); Potassium 3.8 mmol/L (3.5-5.1); Protein, Total 7.2 g/dL (6.0-8.3); Sodium 138 mmol/L (136-145)
== END 2020-05-09 18:45 | disposition home or self-care (01) ==
LOC: ERS 16:51
DX: R07.89 Other chest pain (principal); I10 Essential (primary) hypertension; Z79.899 Other long term (current) drug therapy
CPT/HCPCS: 71045; 80053; 84484; 84702; 85025; 93005

== ENCOUNTER 2020-09-02 20:00 | Inpatient (IN) | payer OTHER, SELFPAY ==
[~2020-09-02 20:00] MED LIST: Iopamidol-370 76% 500 ML 1 ML ONE
[2020-09-02 20:43] LABS: #Eosinphils 0.2 thou/uL (0.0-0.7); #Lymphocytes 3.5 thou/uL (1.20-3.40); #Monocytes 0.7 thou/uL (0.11-0.59); #Neutrophils 4.3 thou/uL (1.40-6.50); %Basophils 0.4 % (0.0-1.0); %Eosinophils 2.6 % (0.0-10.0); %Lymphocytes 39.9 % (21.0-51.0); %Monocytes 7.7 % (0.0-10.0); %Neutrophils 49.4 % (42.0-75.0); Hemoglobin 13.1 g/dL (12.0-16.0); Mean Corpuscular HGB CONC 34.9 g/dL (32.0-36.0); Mean Corpuscular Hemoglobin 29.4 pg (27.0-31.0); Mean Corpuscular Volume 84.4 fL (78.0-98.0); Mean Platelet Volume 9.3 fL (7.4-10.4); Platelet Count 256 thou/uL (130-400); Red Blood Cell (RBC) Count 4.45 mill/uL (4.20-5.40); White Blood Cell (WBC) Count 8.7 thou/uL (4.8-10.8)
[2020-09-02 21:06] LABS: ALT (SGPT) 37 U/L (8-55); AST (SGOT) 23 U/L (5-34); Alkaline Phosphatase 96 U/L (40-110); Anion Gap 13 mmol/L (10-20); BUN (Urea Nitrogen) 12 mg/dL (7.0-18.7); Bilirubin, Total 0.4 mg/dL (0.2-1.2); Calc. Creatinine Clearance 0 mL/min (70-130); Calcium 9.2 mg/dL (7.8-10.44); Carbon Dioxide 24 mmol/L (22-29); Chloride 104 mmol/L (98-107); Globulin 3.1 g/dL (2.4-3.5); Glucose 106 mg/dL (70-105); Potassium 3.9 mmol/L (3.5-5.1); Protein, Total 7.1 g/dL (6.0-8.3); Sodium 137 mmol/L (136-145)
[2020-09-02] MEDS ORDERED: diphenhydrAMINE 12.5 MG/5 ML UDCUP ONE (21:40)
[2020-09-02] MEDS ORDERED: Metoclopramide HCl 10 MG/2 ML VIAL ONE (21:40)
[2020-09-02] MEDS ORDERED: diphenhydrAMINE 50 MG/ML VIAL ONE (21:41)
[2020-09-02 21:45] LABS: PTT 26.3 sec (22.9-36.1); Prothrombin Time 13.7 sec (12.0-14.7)
[2020-09-02] MEDS ORDERED: Ondansetron ODT 4 MG TAB PO PRN (22:48)
[2020-09-02] MEDS ORDERED: methylPREDNISolone Sod Succ/PF 60 MG in Sodium Chloride 0.9% 250 ML 250 ML IVPB SCH (23:00)
[2020-09-02] MEDS ORDERED: Magnesium 2 GM/50 ML 2 GM in Premix Bag 1 BAG IVPB SCH (23:45)
[2020-09-02 23:51] LABS: Bilirubin Negative (Negative); Blood, Urine Negative (Negative); Clarity Clear (Clear); Glucose, Urine (Dipstick) Normal (Negative); Ketone, Urine Negative (Negative); Leukocyte Negative Leu/uL (Negative); Nitrite Negative (Negative); Protein, Urine (Dipstick) Negative (Neg-Trace); Specific Gravity, Urine 1.049 (1.002-1.036); Urobilinogen Normal mg/dL (Less than 2); pH, Urine 7.5 (5.0-9.0)
[2020-09-02] MEDS ORDERED: Magnesium 2 GM/50 ML BAG (IN WATER) ONE (23:54)
[2020-09-02] MEDS ORDERED: Aspirin Chewable 81 MG TAB ONE (23:54)
[2020-09-02] MEDS ORDERED: [UNRECOGNIZED DRUG - OTHER] IVPB SCH (23:59)
[2020-09-02] MEDS ORDERED: ADMIXTURE FEE IVPB SCH (23:59)
[2020-09-02] MEDS ORDERED: METHYLPREDNISOLONE SOD SUCC IVPB SCH (23:59)
[2020-09-03 05:27] LABS: Hemoglobin A1c 5.9 % (4.0-6.0)
[2020-09-03 05:36] LABS: Anion Gap 12 mmol/L (10-20); BUN (Urea Nitrogen) 8 mg/dL (7.0-18.7); Calc. Creatinine Clearance 0 mL/min (70-130); Calcium 8.6 mg/dL (7.8-10.44); Carbon Dioxide 23 mmol/L (22-29); Cardiac Risk 5.1 (Less than 4.5); Chloride 106 mmol/L (98-107); Cholesterol 195 mg/dl (< 200 Desired); Glucose 143 mg/dL (70-105); HDL Cholesterol 38 mg/dL (>60 Neg Risk); LDL Cholesterol, Calculated 122 mg/dL; Potassium 4.5 mmol/L (3.5-5.1); Sodium 136 mmol/L (136-145); Triglycerides 177 mg/dL (Less than 150)
[2020-09-03] MEDS ORDERED: Enoxaparin Sodium 40 MG/0.4 ML SYRINGE ONE (08:04)
[2020-09-03] MEDS ORDERED: Aspirin Chewable 81 MG TAB ONE (08:04)
[2020-09-03] MEDS: Aspirin 81 mg Enteric Coated Tablet PO SCH (08:16)
[2020-09-03] MEDS ORDERED: Enoxaparin Sodium 40 MG/0.4 ML SYRINGE SC SCH (09:00)
[2020-09-03] MEDS ORDERED: Acetaminophen 325 MG TAB ONE (09:45)
[2020-09-03] MEDS: Acetaminophen 325 MG TAB PO PRN ×2 (09:50→20:38)
[2020-09-03 11:41] LABS: SARS-CoV-2 PCR by NAA Not Detected (NotDetected)
[2020-09-03] MEDS ORDERED: Ketorolac Tromethamine 30 MG/ML VIAL ONE (12:59)
[2020-09-03] MEDS ORDERED: Lactated Ringer's 1,000 ML IV SCH (13:00)
[2020-09-03] MEDS ORDERED: Ketorolac Tromethamine 30 MG/ML VIAL IVP SCH (13:00)
[2020-09-03 13:34] LABS: INR-International Normal Ratio 1.1; PTT 28.2 sec (22.9-36.1); Prothrombin Time 13.9 sec (12.0-14.7)
[2020-09-03 13:36] LABS: D-Dimer Test Less than 0.27 *mcg/mL (0.27-0.43)
[2020-09-03 13:46] LABS: Protein C Activity 139 % (78-152)
[2020-09-03 15:12] LABS: Factor VIII Test 147.7 % ACTIVE (56-157)
[2020-09-03] MEDS ORDERED: SODIUM CHLORIDE 0.9% IVPB SCH (15:45)
[2020-09-03] MEDS ORDERED: VALPROATE SODIUM IVPB SCH (15:45)
[2020-09-03 18:55] VITALS: BMI 38.7
[2020-09-03] MEDS ORDERED: Haloperidol Lactate 5 MG/ML VIAL SLOW IVP PRN (20:06)
[2020-09-03] MEDS ORDERED: Atorvastatin Calcium 40 MG TAB PO SCH (21:00)
[2020-09-04] MEDS ORDERED: predniSONE 20 MG TAB PO SCH (08:00)
[2020-09-04] MEDS: Aspirin 81 mg Enteric Coated Tablet PO SCH (09:23)
[2020-09-04 10:01] LABS: HEX PHOS LA Tube 1 40.2 SEC; HEX PHOS LA Tube 2 39.8 SEC; Hexagonal Phospholipid Neut 0.4 SEC (0-8.0)
[2020-09-04 15:45] VITALS: BP 137/68; TEMP 98.5
[2020-09-04] MEDS: Acetaminophen 325 MG TAB PO PRN (15:56)
[2020-09-05 14:30] LABS: Cardiolipin IgA Ab 2.3 APL-U/mL (<14 Negative); Cardiolipin IgG Ab 0.6 GPL-U/mL (<10 Negative); Cardiolipin IgM Ab 1.9 MPL-U/mL (<10 Negative); EliA APS New Method **** NEW METHOD ****
== END 2020-09-04 18:00 | disposition home or self-care (01) | DRG 103 ==
LOC: ERS 20:00 → 2SE 22:01 → ERHOLD 22:08 → 2SE 09-03 17:10 → OBSVTOIN 09-03 17:20
PROVIDERS: ADMIT Family Medicine; ATTEND Family Medicine
DX: G43.109 Migraine with aura, not intractable, without status migrainosus (principal); I16.1 Hypertensive emergency; G43.409 Hemiplegic migraine, not intractable, without status migrainosus; I10 Essential (primary) hypertension; E66.9 Obesity, unspecified; G51.0 Bell's palsy; Z20.822 Contact with and (suspected) exposure to COVID-19; Z68.38 Body mass index [BMI] 38.0-38.9, adult
CPT/HCPCS: 36415; 36416; 70450; 70496; 70498; 70551; 71045; 80048; 80053; 80061; 81003; 83036; 83090; 84484; 85025; 85240; 85300; 85303; 85305; 85307; 85379; 85598; 85610; 85730; 86147; 93005; 93306; G0378; J1200; J1650; J1885; J2765; J2930; J3475; J3490; J7050; J7512; Q0162; Q0163; Q9967; U0003; U0005